=== PATIENT | male | born 1980 | race Caucasian/White ===

== ENCOUNTER → 2023-06-14 | Outpatient (REF) | payer OTHER, SELFPAY | LOC: DHSLP | PROVIDERS: ATTENDING PHYSICIAN Otolaryngology; FAMILY PHYSICIAN Family Medicine | DX: G47.33 Obstructive sleep apnea (adult) (pediatric) (principal) | CPT/HCPCS: 95806 ==

== ENCOUNTER → 2023-09-04 06:34 | Day surgery (SDC) | payer OTHER, SELFPAY | LOC: GI 06:34 | PROVIDERS: ATTENDING PHYSICIAN Internal Medicine Gastroenterology | DX: Z12.11 Encounter for screening for malignant neoplasm of colon (principal); K63.5 Polyp of colon; K64.8 Other hemorrhoids | CPT/HCPCS: 45380; 88305 ==

== ENCOUNTER 2023-10-12 06:28 | Day surgery (SDC) | payer OTHER, SELFPAY ==
[2023-10-12] VITALS (9 sets, daily range): BP systolic 111–132; BP diastolic 64–81; BMI 29.7
[2023-10-12] MEDS: TYLENOL 1000 MG PO (10:39)
[2023-10-12] MEDS: NORMOSOL-R 1000 IV (10:57)
== END 2023-10-12 15:47 | disposition home or self-care (01) ==
LOC: SDS 06:28
PROVIDERS: ATTENDING PHYSICIAN Otolaryngology
DX: J34.2 Deviated nasal septum (principal); J34.3 Hypertrophy of nasal turbinates; G47.33 Obstructive sleep apnea (adult) (pediatric); R06.83 Snoring
CPT/HCPCS: 30520; 30140

== ENCOUNTER → 2024-11-11 11:49 | Outpatient (REF) | payer OTHER, SELFPAY | LOC: DHSLP 11:49 | PROVIDERS: ATTENDING PHYSICIAN Otolaryngology; FAMILY PHYSICIAN Family Medicine | DX: G47.33 Obstructive sleep apnea (adult) (pediatric) (principal); R06.83 Snoring | CPT/HCPCS: 95800 ==